=== PATIENT | female | born 1940 | race Two or more races ===

== ENCOUNTER 2017-07-01 16:15 | Emergency (ER) | payer MEDICAID, MEDICARE, OTHER ==
[~2017-07-01] VITALS: Ht 162.6 cm; Wt 61.7 kg
[~2017-07-01 16:15] MED LIST: ASPI-605 PO; CITA10TA17 PO; DOCU100T2 PO; FAMO40TA6 PO; HYDR12.55 PO; LOSA50TA21 PO; OMEP40CA PO; ROSU20TA PO; SAXA5TAB PO
--- NOTE | 2017-07-01 16:20 | NUR ---
[id number] FROM HOME: DIFFUSE ABDOMINAL PAIN, 10/10 NON RADIATING X 30 MIN DINING ROOM MAID. PATIENT IS AWAKE, APPEARS IN NO APPARENT DISTRESS, RESPIRATION EVEN AND UNLABORED. NO CHEST PAIN, NO SOB NOTED, VSS
--- NOTE | 2017-07-01 16:29 | NUR ---
MD MÉNDEZ AT BEDSIDE
[2017-07-01] MEDS ORDERED: LORAZEPAM INJ 2 MG/ML VIAL ONE ×2 (16:37→17:05)
[2017-07-01] MEDS ORDERED: MIDAZOLAM HCL 2 MG/2ML VIAL ONE (16:58)
[2017-07-01] MEDS ORDERED: LORAZEPAM INJ 2 MG/ML VIAL IV ONE ×2 (17:00→18:00)
[2017-07-01] MEDS ORDERED: MIDAZOLAM HCL 2 MG/2ML VIAL IV ONE (17:00)
--- NOTE | 2017-07-01 17:01 | NUR ---
SENIOR IT PROJECT MANAGER DIRECTOR ELECTRICAL ENGINEERING PAGED DR CHRISTIANSON DIRECTOR ELECTRICAL ENGINEERING
--- NOTE | 2017-07-01 17:01 | NUR ---
URINE SAMPLE SNT
--- NOTE | 2017-07-01 17:01 | NUR ---
MD MÉNDEZ CANCELLED CT
[2017-07-01 17:02] LABS: PROTHROMBIN TIME 10.4 SECS (9.5-12.7)
[2017-07-01 17:07] LABS: BASOPHILS % (AUTO) 0.2 % (0.0-2.0); EOSINOPHILS % (AUTO) 0.7 % (0.0-6.0); HEMATOCRIT 38 % (33-45); HEMOGLOBIN 12.9 g/dL (11.5-14.8); LYMPHOCYTES # (AUTO) 1.4 /CMM (0.8-4.8); LYMPHOCYTES % (AUTO) 20.8 % (20.0-44.0); MEAN CORPUSCULAR HEMOGLOBIN 31 PG (26.0-33.0); MEAN CORPUSCULAR HGB CONC 34 g/dl (31.0-36.0); MEAN CORPUSCULAR VOLUME 90 fL (82-100); MONOCYTES # (AUTO) 0.5 /CMM (0.1-1.30); MONOCYTES % (AUTO) 6.7 % (2.0-12.0); NEUTROPHILS % (AUTO) 71.6 % (43.0-81.0); PLATELET COUNT (AUTO) 203 /CMM (150-450); RDW COEFFICIENT OF VARIATION 13.6 (11.5-15.0); RED BLOOD CELL COUNT(AUTO) 4.23 MIL/uL (4.0-5.2)
[2017-07-01 17:08] LABS: CALCIUM, SERUM 8.6 mg/dL (8.5-10.1); CARBON DIOXIDE 27 mmol/L (21-32); CHLORIDE 98 mmol/L (98-107); CREATININE 0.9 mg/dL (0.6-1.3); GLUCOSE 148 mg/dL (74-106); POTASSIUM 3.4 mmol/L (3.5-5.1); SODIUM SERUM 136 mmol/L (136-145); UREA NITROGEN, BLOOD 15 mg/dL (7-18)
--- NOTE | 2017-07-01 17:10 | NUR ---
code stemi was called per Ekg-- MDpham
[2017-07-01] MEDS ORDERED: ASPIRIN 81 MG TAB.CHEW ONE (17:15)
[2017-07-01] MEDS ORDERED: NITROGLYCERIN PACKET 1 GM PACKET ONE (17:19)
[2017-07-01] MEDS ORDERED: ONDANSETRON HCL/PF 4 MG/2 ML VIAL ONE (17:19)
[2017-07-01 17:27] LABS: TROPONIN I 0.037 ng/mL (0.00-0.056)
--- NOTE | 2017-07-01 17:28 | NUR ---
DR MÉNDEZ ON THE PHONE WITH BELLE PLAINE QUALITY PROJECT MANAGER JASON
[2017-07-01] MEDS ORDERED: NTG 50 MG/D5W250 ML BOTTL 250 ML IV ONE (17:30)
[2017-07-01] MEDS ORDERED: ONDANSETRON HCL/PF 4 MG/2 ML VIAL IV ONE (17:30)
[2017-07-01] MEDS ORDERED: MORPHINE SULFATE INJ 2 MG/ML DISP.SYRIN IV ONE (17:30)
[2017-07-01 17:32] LABS: APPEARANCE,URINE CLEAR (CLEAR); BILIRUBIN,URINE NEGATIVE (NEGATIVE); BLOOD, URINE TRACE-INTA Ery/uL (NEGATIVE); COLOR,URINE YELLOW (YELLOW); KETONES,URINE TRACE (NEGATIVE); LEUKOCYTE ESTERASE ,URINE NEGATIVE (NEGATIVE); NITRITE, URINE NEGATIVE (NEGATIVE); PH,URINE 7.5 (5.0-8.0); PROTEIN,URINE NEGATIVE (NEGATIVE); UGLUCOSE NEGATIVE (NEGATIVE); UROBILINOGEN,URINE 0.2 EU/dL (0.2)
[2017-07-01 17:46] LABS: BACTERIA,URINE Rare /HPF (None Seen); SQUAMOUS EPITHELIAL CELL,UR Few /HPF (None Seen); WBC,URINE NONE SEEN /HPF (0-3)
--- NOTE | 2017-07-01 17:55 | NUR ---
wasted aspirin 81mg x 4.pt unable to swallow. MD emery changed order to suppository
[2017-07-01 17:57] VITALS: BP 135/94
[2017-07-01 17:57] LABS: ALANINE AMINOTRANSFERASE 22 U/L (12-78); ALKALINE PHOSPHATASE 67 U/L (46-116); ASPARTATE AMINOTRANSFERASE 23 U/L (15-37); BILIRUBIN,DIRECT 0.1 mg/dL (0.0-0.2); BILIRUBIN,TOTAL 0.5 mg/dL (0.2-1.0)
--- NOTE | 2017-07-01 17:57 | NUR ---
PATIENT WAS PICKED UP BY [facility] FOR [facility] LEVEL OF CARE. VSS. NEEDS ATTEDED
[2017-07-01 17:59] LABS: SALICYLATE 0.7 mg/dL (2.8-20.0)
[2017-07-01] MEDS ORDERED: HEPARIN SODIUM,PORCINE/PF 50 UNIT/5 ML DISP.SYRIN IV ONE (18:00)
[2017-07-01] MEDS ORDERED: ASPIRIN 300 MG/SUPP.RECT RC ONE (18:00)
--- NOTE | 2017-07-01 18:01 | NUR ---
WASTED NITRO OINTMENT
--- NOTE | 2017-07-01 18:01 | NUR ---
PATIENT'S NITRO DRIP INFUSING AT TIME OF TRANSFER TO [facility]. MD MÉNDEZ AWARE
[2017-07-01 18:07] LABS: SERUM AMMONIA 14 umol/L (11-32)
[2017-07-01 19:08] LABS: ACETAMINOPHEN < 2 ug/ml (10-30); ALCOHOL, BLOOD < 3 mg/dL (0-0)
[2017-07-02 10:51] LABS: THYROID STIMULATING HORMONE 6.391 uIU/mL (0.358-3.74)
== END 2017-07-01 18:43 | disposition short-term general hospital (02) ==
LOC: ER 16:17
DX: I21.3 ST elevation (STEMI) myocardial infarction of unspecified site (principal); E11.9 Type 2 diabetes mellitus without complications; E78.00 Pure hypercholesterolemia, unspecified; I10 Essential (primary) hypertension; E87.6 Hypokalemia; I70.0 Atherosclerosis of aorta; K21.9 Gastro-esophageal reflux disease without esophagitis; Z88.8 Allergy status to other drugs, medicaments and biological substances; Z88.1 Allergy status to other antibiotic agents
CPT/HCPCS: 36415; 51701; 71010; 80048; 80076; 80305; 80329; 81001; 82140; 82962; 84443; 84484; 85025; 85730; 93005 ×3; 96365; 96375; 99291; 99292; A4606; G0480 ×2; J1642; J2060 ×2; J2250; J2405; 81000-TC; Z7610

== ENCOUNTER 2019-10-31 12:02 | Inpatient (IN) | payer MEDICARE, MEDICAID ==
[~2019-10-31] VITALS: Ht 160 cm; Wt 59.9 kg
[~2019-10-31 12:02] MED LIST changes: -LOSA50TA21 PO; +LOSA50TA39 PO; -ROSU20TA PO; +ROSU20TA2 PO
--- NOTE | 2019-10-31 12:12 | NUR ---
BIBRA 102 FROM HOME C/O CHEST PAIN RADIATES TO BACK STARTED YESTERDAY. PATIENT A/OX4, BREATHING EVEN AND UNLABORED, NO SOB NOTED, STILL C/O CHEST PAIN, NEEDS ATTENDED. CHANGED INTO GOWN, ATTACHED TO THE SECTION GANG.
[2019-10-31] MEDS ORDERED: ATOR40TA PO (12:30)
[2019-10-31] MEDS ORDERED: NITR0.4T48 SL (12:30)
[2019-10-31] MEDS ORDERED: PANT40TA2 PO (12:30)
[2019-10-31] MEDS ORDERED: CLOP75TA15 PO (12:30)
[2019-10-31] MEDS ORDERED: SITA100T PO (12:30)
[2019-10-31] MEDS ORDERED: LISI40TA4 PO (12:30)
[2019-10-31] MEDS ORDERED: DICY20TA11 PO (12:31)
[2019-10-31] MEDS ORDERED: LINA290C PO (12:32)
[2019-10-31 12:47] LABS: BASOPHILS % (AUTO) 0.6 % (0.0-2.0); EOSINOPHILS % (AUTO) 0.8 % (0.0-6.0); HEMATOCRIT 38 % (33-45); HEMOGLOBIN 12.6 g/dL (11.5-14.8); LYMPHOCYTES # (AUTO) 1.2 /CMM (0.8-4.8); LYMPHOCYTES % (AUTO) 22.2 % (20.0-44.0); MEAN CORPUSCULAR HGB CONC 33 g/dl (31.0-36.0); MEAN CORPUSCULAR VOLUME 92 fL (82-100); MONOCYTES # (AUTO) 0.5 /CMM (0.1-1.30); MONOCYTES % (AUTO) 8.6 % (2.0-12.0); NEUTROPHILS # (AUTO) 3.6 /CMM (1.8-8.9); NEUTROPHILS % (AUTO) 67.8 % (43.0-81.0); PLATELET COUNT (AUTO) 184 /CMM (150-450); RED BLOOD CELL COUNT(AUTO) 4.12 MIL/uL (4.0-5.2); WHITE BLOOD COUNT (AUTO) 5.4 K/uL (4.3-11.0)
[2019-10-31] MEDS ORDERED: NITROGLYCERIN 0.4 MG/TAB BOTTLE ONE (12:48)
[2019-10-31 12:54] LABS: CALCIUM, SERUM 9.7 mg/dL (8.5-10.1); CARBON DIOXIDE 33 mmol/L (21-32); CHLORIDE 102 mmol/L (98-107); CREATININE 0.8 mg/dL (0.6-1.3); GLUCOSE 130 mg/dL (74-106); POTASSIUM 3.9 mmol/L (3.5-5.1); SODIUM SERUM 141 mmol/L (136-145); UREA NITROGEN, BLOOD 14 mg/dL (7-18)
[2019-10-31] MEDS ORDERED: NITROGLYCERIN 0.4 MG/TAB BOTTLE SL ONE (13:00)
--- NOTE | 2019-10-31 13:00 | NUR ---
CALLED NURSING FOR TELE BED.
--- NOTE | 2019-10-31 13:06 | NUR ---
PT GAVE DAUGHTERS CONTACT. [facility] HOME. CELL .
--- NOTE | 2019-10-31 13:06 | NUR ---
[facility].
[2019-10-31 13:07] LABS: ALANINE AMINOTRANSFERASE 43 U/L (12-78); ALKALINE PHOSPHATASE 74 U/L (46-116); ASPARTATE AMINOTRANSFERASE 53 U/L (15-37); B-TYPE NATRIURETIC PEPTIDE 1001 PG/ML (0-125); BILIRUBIN,DIRECT 0.1 mg/dL (0.0-0.2); BILIRUBIN,TOTAL 0.3 mg/dL (0.2-1.0); D-DIMER 0.34 mg/L(FEU (0.17-0.50); TOTAL PROTEIN, SERUM 7.4 g/dL (6.4-8.2)
--- NOTE | 2019-10-31 13:21 | NUR ---
PAGED EPIC SECOND ATTEMPT.
[2019-10-31] MEDS ORDERED: ASPIRIN 81 MG TAB.CHEW ONE (13:38)
--- NOTE | 2019-10-31 13:40 | NUR ---
CORNELIA ROJAS HUMAN RESOURCES COMMUNICATIONS MANAGER AT BEDSIDE FOR EVAL.
[2019-10-31] MEDS ORDERED: ZOLPIDEM TARTRATE 5 MG TABLET PO PRN (14:00)
[2019-10-31] MEDS ORDERED: NITROGLYCERIN 0.4 MG/TAB BOTTLE SL PRN (14:00)
[2019-10-31] MEDS ORDERED: HYDROCODONE/APAP 5/325MG 1 EACH TABLET PO PRN (14:00)
[2019-10-31] MEDS ORDERED: MAG HYDROX/AL HYDROX/SIMETH 30 ML UDC PO PRN (14:00)
[2019-10-31] MEDS ORDERED: ONDANSETRON HCL/PF 4 MG/2 ML VIAL IVP PRN (14:00)
[2019-10-31] MEDS ORDERED: ACETAMINOPHEN 325 MG TABLET PO PRN (14:00)
[2019-10-31] MEDS ORDERED: ASPIRIN 81 MG TAB.CHEW PO ONE (14:00)
--- NOTE | 2019-10-31 14:15 | NUR ---
NURSING SUP GAVE TELE BED 327-2. NURSING NAME IS ALEX.
--- NOTE | 2019-10-31 15:00 | NUR ---
GAVE REPORT TO [facility].
--- NOTE | 2019-10-31 15:48 | NUR ---
PATIENT TRANSFERRED TO ROOM 327-1 VIA ACLS PROTOCOL. PATIENT IN STABLE CONDITION, AMBULATORY. NEEDS ATTENDED, ENDORSED TO [facility]INE.
--- NOTE | 2019-10-31 15:58 | NUR ---
TELE/RN NOTE THE PATIENT IS RECEIVED ON A GURNEY. ASSISTED THE PATIENT TO BED. PATIENT IS ALERT AND ORIENTED X3. IN ROOM AIR AND DENIES SOB. RESPIRATION REGULAR AND UNLABORED. DENIES PAIN AT THIS TIME. THE PATIENT IN NO APPARENT DISTRESS. RAC G 18 PATENT AND SALINE LOCKED. PATIENT IS GIVEN ORIENTATION TO ROOM AND UNIT. THE PATIENT VERBALIZED UNDERSTANDING. CALL LIGHT WITHIN REACH. SIDE RAILS UP X3. WILL CONTINUE TO MONITOR.
[2019-10-31 16:00] VITALS: BP 144/72
[2019-10-31] MEDS ORDERED: DICYCLOMINE HCL 10 MG/5 ML UDC PO ONE (17:00)
[2019-10-31] MEDS: PANTOPRAZOLE 40 MG TABLET.DR PO SCH (17:14)
--- NOTE | 2019-10-31 18:01 | NUR ---
MS/RN NOTE FOLLOW UP CALL IS MADE TO PHARMACY TO DELIVER DICYCLOMINE HCL 20 MG. PER PHARMACY THE MEDICATION WILL BE DELIVERED. WILL CONTINUE TO FOLLOW UP.
--- NOTE | 2019-10-31 18:02 | NUR ---
MS/RN NOTE THE PATIENT IS ALERT AND ORIENTED X3. DENIES PAIN AT THIS TIME. IN ROOM AIR AND SATURATION IS AT 97%. RESPIRATION REGULAR AND UNLABORED. THE PATIENT IS IN NO APPARENT DISTRESS. EXTERNAL TELE BOX READING IS SR 74. RAC G 18 PATENT AND SALINE LOCKED. PATIENT IS ON CLEAR DIET AND TOLERATED IT WELL. BED LOW AND LOCKED. SIDE RAILS UP X3. CALL LIGHT WITHIN REACH. WILL ENDORSE TO MANAGER AUTOMOTIVE.
--- NOTE | 2019-10-31 18:52 | NUR ---
MS/RN NOTE THE CONTACT BLACKTOP SPREADER BOB FOR BLOOD THINNER ORDER DUE TO PATIENT HAS HX OF DVT AND VTE SCORE IS 3. NO REPLY YET. ENDORSED CLINICAL RN LIAISON TO FOLLOW UP.
--- NOTE | 2019-10-31 19:00 | NUR ---
SEARCH ENGINE OPTIMIZER OPENING NOTES RECEIVED PATIENT IN BED AWAKE ALERT AND ORIENTED X3-4, RESPIRATIONS EVEN AND UNLABORED WITH EQUAL RISE AND FALL OF CHEST, DENIES ANY PAIN OR DISCOMFORT AT THIS TIME, ON SUEDING MACHINE OPERATOR SR 64, IV SITE TO RIGHT AC #18 G INTACT AND PATENT, NO REDNESS, NO INFILTRATION PRESENT,ORIENTED TO STAFF AND CALL LIGHT AND KEPT WITHIN REACH, SAFETY PRECAUTIONS IN PLACE, LOW BED AND LOCKED, BED ALARM IN PLACE, ALL NEEDS ATTENDED AT THIS TIME, WILL CONTINUE TO MONITOR AND ATTEND TO NEEDS, AT THIS TIME DENIES ANY CHEST PAIN.DISCUSSED PLAN OF CARE WITH PATIENT.
--- NOTE | 2019-10-31 19:00 | NUR ---
MS/RN NOTE RECEIVED CALL FROM OMAR ROJAS AND HAMLET N[P NO NEW FOR ANOTHER MEDICATION ORDER (BLOOD THINNER) DUE TO PATIENT IS ALREADY ON PLAVIX.
[2019-10-31 20:00] VITALS: BP_SYST 117; BP_SYST 148; BP_DIAS 58; BP_DIAS 62
[2019-10-31] MEDS: DICYCLOMINE HCL 10 MG CAPSULE PO SCH (20:54)
[2019-10-31] MEDS: MAGNESIUM HYDROXIDE 30 ML UDC PO PRN (20:54)
--- NOTE | 2019-10-31 20:54 | NUR ---
RESPIRATORY THERAPY TECHNICIAN NOTES PATIENT REQUEST FOR MILK OF MAGNESIUM STATES " SHE FEELS SHES ONLY HAD A VERY SMALL BOWEL MOVEMENT RECENTLY " PRN MILK OF MAGNESIUM GIVEN ORDERED WILL CONTINUE TO MONITOR.
[2019-10-31] MEDS ORDERED: ATORVASTATIN 10 MG TABLET PO SCH (22:00)
[2019-11-01] VITALS: BP 107/68
[2019-11-01 04:00] VITALS: BP 147/76
--- NOTE | 2019-11-01 06:23 | NUR ---
TRANSMISSIONS SYSTEMS OPERATOR CLOSING NOTES PATIENT IN BED AWAKE ALERT AND ORIENTED X3-4, RESPIRATIONS EVEN AND UNLABORED WITH EQUAL RISE AND FALL OF CHEST, DENIES ANY PAIN OR DISCOMFORT AT THIS TIME, ON LACTATION NURSE SR 66, IV SITE TO RIGHT AC #18 G INTACT AND PATENT, NO REDNESS, NO INFILTRATION PRESENT CALL LIGHT KEPT WITHIN REACH, SAFETY PRECAUTIONS IN PLACE, LOW BED AND LOCKED, BED ALARM IN PLACE, ALL NEEDS ATTENDED AT THIS TIME, WILL CONTINUE TO MONITOR AND ATTEND TO NEEDS, AT THIS TIME DENIES ANY CHEST PAIN.DISCUSSED PLAN OF CARE WITH PATIENT. WILL ENDORSE TO NEXT SHIFT. REMAINS COMFORTABLE.
[2019-11-01 06:29] LABS: BASOPHILS % (AUTO) 0.5 % (0.0-2.0); EOSINOPHILS % (AUTO) 2.2 % (0.0-6.0); HEMATOCRIT 35 % (33-45); LYMPHOCYTES # (AUTO) 1.8 /CMM (0.8-4.8); LYMPHOCYTES % (AUTO) 33.3 % (20.0-44.0); MEAN CORPUSCULAR HGB CONC 34 g/dl (31.0-36.0); MEAN CORPUSCULAR VOLUME 91 fL (82-100); MONOCYTES # (AUTO) 0.6 /CMM (0.1-1.30); MONOCYTES % (AUTO) 10.3 % (2.0-12.0); NEUTROPHILS # (AUTO) 2.9 /CMM (1.8-8.9); NEUTROPHILS % (AUTO) 53.7 % (43.0-81.0); PLATELET COUNT (AUTO) 168 /CMM (150-450); RED BLOOD CELL COUNT(AUTO) 3.88 MIL/uL (4.0-5.2); WHITE BLOOD COUNT (AUTO) 5.4 K/uL (4.3-11.0)
--- NOTE | 2019-11-01 06:30 | NUR ---
CORING MACHINE OPERATOR NOTES STATES SKIN IS CLEAR AND FREE OF WOUNDS.
[2019-11-01 06:47] LABS: CALCIUM, SERUM 8.3 mg/dL (8.5-10.1); CREATININE 0.8 mg/dL (0.6-1.3); MAGNESIUM 2.4 mg/dL (1.8-2.4); POTASSIUM 3.8 mmol/L (3.5-5.1)
--- NOTE | 2019-11-01 07:15 | NUR ---
RIP/MOULD OPERATOR NOTES PATIENT IN BED ALERT ORIENTED X 3. NO ACUTE DISTRESS NOTED. BREATHING UNLABORED. NO SOB NOTED. DENIED ANY PAIN. SAFETY MEASURES IN PLACE. CALL LIGHT WITHIN REACH. WILL CONTINUE TO MONITOR ACCORDINGLY.
[2019-11-01 08:00] VITALS: BP 136/65
[2019-11-01] MEDS: PANTOPRAZOLE 40 MG TABLET.DR PO SCH ×2 (08:21→17:14)
[2019-11-01] MEDS: ASPIRIN 81 MG TAB.CHEW PO SCH (08:21)
[2019-11-01] MEDS: ATORVASTATIN 40 MG TABLET PO SCH (08:21)
[2019-11-01] MEDS: LINAGLIPTIN 5 MG TABLET PO SCH (08:21)
[2019-11-01] MEDS: LISINOPRIL (20MG) 20 MG TABLET PO SCH (08:22)
[2019-11-01] MEDS: DICYCLOMINE HCL 10 MG CAPSULE PO SCH (08:23)
[2019-11-01] MEDS: CLOPIDOGREL BISULFATE 75 MG TABLET PO SCH (08:23)
[2019-11-01] MEDS ORDERED: DICYCLOMINE HCL 10 MG CAPSULE PO PRN (10:00)
[2019-11-01] MEDS ORDERED: IOHEXOL-350 100 ML VIAL IV ONE (11:45)
[2019-11-01] MEDS ORDERED: IV NS 0.9% 250 ML IV ONE (11:46)
[2019-11-01] MEDS ORDERED: CT SWABBABLE VALVE TRANS SET 1 EA INFUS.SET MC ONE (11:46)
[2019-11-01] MEDS: METOPROLOL TARTRATE 50 MG TABLET PO SCH ×3 (12:00→23:36)
[2019-11-01] MEDS ORDERED: METOPROLOL TARTRATE INJ 5 MG/5 ML AMPUL IVP ONE (12:00)
[2019-11-01] MEDS ORDERED: IV NS 0.9% 500 ML IV PRN (12:00)
[2019-11-01] MEDS ORDERED: NITROGLYCERIN 0.4 MG/TAB BOTTLE SL ONE (12:00)
--- NOTE | 2019-11-01 12:00 | NUR ---
MS RN NOTES PATIENT TRANSPORTED FOR CTA IN STABLE CONDITION. ALERT ORIENTED X 3.
[2019-11-01] MEDS ORDERED: IBUPROFEN 200 MG TABLET ONE (12:12)
[2019-11-01] MEDS ORDERED: NITROGLYCERIN 0.4 MG/TAB BOTTLE ONE (12:12)
[2019-11-01] MEDS ORDERED: METOPROLOL TARTRATE INJ 5 MG/5 ML AMPUL ONE ×2 (12:12→12:51)
--- NOTE | 2019-11-01 13:45 | NUR ---
MS RN NOTES PATIENT CAME BACK FROM CTA WITH STABLE VITAL SIGNS. ALERT ORIENTED X 3. NO ACUTE DISTRESS NOTED. WILL CONTINUE TO MONITOR,
[2019-11-01 16:00] VITALS: BP 147/79
--- NOTE | 2019-11-01 17:59 | NUR ---
MS RN NOTES RECEIVED NEW ORDERS FROM CORNELIA ROJAS NP TO CHANGE CURRENT DIET CARDIAC, NOTED AND CARRIED OUT.
--- NOTE | 2019-11-01 19:00 | NUR ---
MS RN NOTES PATIENT IN BED ALERT ORIENTED X 4.NO ACUTE DISTRESS NOTED. BREATHING UNLABORED. NO SOB NOTED. DENIED ANY PAIN. DUE MEDICATIONS GIVEN, NO ASE NOTED. VITAL SIGNS REMAIN STABLE TROUGHTOUT THE SHIFT. NEEDS ATTENDED AND ANTICIPATED. SAFETY MEASURES IN PLACE. CALL LIGHT WITHIN REACH. WILL ENDORSE TO NIGHT NURSE FOR CONTINUITY OF CARE.
[2019-11-01 20:35] VITALS: BP 167/70
[2019-11-01] MEDS: MAGNESIUM HYDROXIDE 30 ML UDC PO PRN (21:34)
--- NOTE | 2019-11-01 21:42 | NUR ---
MS RN OPENING NOTES Patient A/O X4, awake on bed on RA, no SOB/respiratory distress noted. Patient denies discomfort at this time. Kept on bed clean, dry and comfortable. On fall and aspiration precautions. Call light within easy reach. Will continue to monitor.
--- NOTE | 2019-11-02 01:04 | NUR ---
MS SERGIO NOTES Endorsed to SERGIO Shoemaker for MODESTO.
--- NOTE | 2019-11-02 01:15 | NUR ---
MS/RN NOTES: REPORT GIVEN BY ARABELLA FOR MODE[facility]. RECEIVED PATIENT IN A STABLE CONDITION. A/O X4, VERBALLY RESPONSIVE. ABLE TO MAKE NEEDS KNOWN. NO SOB NOTED, ON ROOM AIR. BREATHING EVEN AND UNLABORED. NO S/S OF ACUTE DISTRESS. NO COMPLAINS OF PAIN AT THIS TIME. WILL CONTINUE TO MONITOR PATIENT ACCORDINGLY. SAFETY PRECAUTIONS AND ASPIRATION PRECAUTIONS ARE IN PLACE. CALL LIGHT WITHIN REACH. WILL CONTINUE TO MONITOR ACCORDINGLY.
[2019-11-02] MEDS: METOPROLOL TARTRATE 50 MG TABLET PO SCH ×2 (06:24→13:07)
[2019-11-02 06:46] LABS: BASOPHILS % (AUTO) 0.4 % (0.0-2.0); EOSINOPHILS % (AUTO) 2.4 % (0.0-6.0); HEMATOCRIT 37 % (33-45); HEMOGLOBIN 12.6 g/dL (11.5-14.8); LYMPHOCYTES # (AUTO) 1.5 /CMM (0.8-4.8); LYMPHOCYTES % (AUTO) 26.3 % (20.0-44.0); MEAN CORPUSCULAR HGB CONC 34 g/dl (31.0-36.0); MEAN CORPUSCULAR VOLUME 92 fL (82-100); MONOCYTES # (AUTO) 0.6 /CMM (0.1-1.30); MONOCYTES % (AUTO) 10.4 % (2.0-12.0); NEUTROPHILS # (AUTO) 3.4 /CMM (1.8-8.9); NEUTROPHILS % (AUTO) 60.5 % (43.0-81.0); PLATELET COUNT (AUTO) 168 /CMM (150-450); RED BLOOD CELL COUNT(AUTO) 4.04 MIL/uL (4.0-5.2); WHITE BLOOD COUNT (AUTO) 5.7 K/uL (4.3-11.0)
--- NOTE | 2019-11-02 07:00 | NUR ---
MS RN CLOSING NOTES: Patient is asleep in bed but arousable on tactile and verbal stimuli. A/O X4, no SOB/respiratory distress noted. Patient denies discomfort at this time. Kept on bed clean, dry and comfortable. All due meds given as ordered. All nursing needs met and provided. On fall and aspiration precautions. Safety measure kept in place. Call light within easy reach. Will endorse to day shift nurse for [facility].
--- NOTE | 2019-11-02 07:52 | NUR ---
MS HILL OPENING NOTES PATIENT RECEIVED IN BED AWAKE, A/O X 3, ABLE TO VERBALIZE NEEDS. DENIES ANY PAIN AT THIS TIME. PATIENT ON RA, RESPIRATIONS EVEN AND UNLABORED. IV LOCK ON LEFT AC GAUGE # 22, INTACT AND PATENT, NO REDNESS OR INFILTRATION PRESENT AT THIS TIME. SAFETY PRECAUTIONS IN PLACE: BED IN LOW POSITION AND LOCKED, BED ALARM IN PLACE, CALL LIGHT WITHIN REACH, ALL NEEDS ATTENDED AT THIS TIME. WILL CONTINUE TO MONITOR THE PATIENT. Addendum: 11/02/19 at 0803 by VAISHNAVI JIANG RN CORRECTION: IV LOCK ON LEFT AC GAUGE # 18 NOT 22
[2019-11-02 08:00] VITALS: BP 150/79
[2019-11-02] MEDS: CLOPIDOGREL BISULFATE 75 MG TABLET PO SCH (08:57)
[2019-11-02] MEDS: LINAGLIPTIN 5 MG TABLET PO SCH (08:58)
[2019-11-02] MEDS: LISINOPRIL (20MG) 20 MG TABLET PO SCH (08:58)
[2019-11-02] MEDS: ATORVASTATIN 40 MG TABLET PO SCH (08:59)
[2019-11-02] MEDS: PANTOPRAZOLE 40 MG TABLET.DR PO SCH (08:59)
[2019-11-02] MEDS: ASPIRIN 81 MG TAB.CHEW PO SCH (08:59)
[2019-11-02 09:06] LABS: CALCIUM, SERUM 8.4 mg/dL (8.5-10.1); CREATININE 0.9 mg/dL (0.6-1.3); MAGNESIUM 2.8 mg/dL (1.8-2.4); PHOSPHORUS 2.9 mg/dL (2.5-4.9); POTASSIUM 3.9 mmol/L (3.5-5.1)
[2019-11-02] MEDS ORDERED: AMLODIPINE BESYLATE 10 MG TABLET PO SCH (09:30)
[2019-11-02] MEDS ORDERED: AMLO10TA7 PO (13:05)
[2019-11-02] MEDS ORDERED: DOCU-141 PO (13:05)
[2019-11-02] MEDS ORDERED: METO25TA6 PO (13:05)
[2019-11-02 13:07] VITALS: BP 141/61
--- NOTE | 2019-11-02 16:29 | NUR ---
RN DISCHARGED NOTES PT DISCHARGED HOME IN STABLE CONDITION. A/O X4. ABLE TO MAKE NEEDS KNOW, NO C/O CHEST PAIN VOICED NOTED. V/S TAKEN, STABLE AND RECORDED. SKIN IS INTACT. ALL BELONGINGS CHECKED, COUNTED AND SIGNED FORM. IV ACCESS REMOVED WITH NO BLEEDING NOTED, DRY [id number] APPLIED. NAME ARM BAND REMOVED. HEALTH TEACHINGS GIVEN TO PT AND FRIEND ARLEEN, BOTH VERBALIZED UNDERSTANDING. HOME MEDS STORED FROM PHARMACY COLLECTED AND HANDED TO PT. PT LEFT UNIT VIA WHEELCHAIR @ 1610 VIA WHEELCHAIR ACCOMPANIED BY ENGINE REPAIRER AND PT'S FRIEND ARLEEN IN NO ACUTE SIGNS OF DISTRESS. CHARGE NURSE AWARE OF DISCHARGE.
== END 2019-11-02 16:14 | disposition home or self-care (01) | DRG 303 ==
LOC: ER 12:09 → TELE 14:22 → MED 11-01 09:31
PROVIDERS: ADMIT Nurse Practitioner Acute Care; ATTEND Nurse Practitioner Acute Care
DX: I25.10 Atherosclerotic heart disease of native coronary artery without angina pectoris (principal); K56.7 Ileus, unspecified; K59.00 Constipation, unspecified; I10 Essential (primary) hypertension; E11.9 Type 2 diabetes mellitus without complications; Z79.02 Long term (current) use of antithrombotics/antiplatelets; Z79.82 Long term (current) use of aspirin; Z79.899 Other long term (current) drug therapy; Z95.5 Presence of coronary angioplasty implant and graft; M81.0 Age-related osteoporosis without current pathological fracture; K21.9 Gastro-esophageal reflux disease without esophagitis; Z88.1 Allergy status to other antibiotic agents; Z88.8 Allergy status to other drugs, medicaments and biological substances; Z79.84 Long term (current) use of oral hypoglycemic drugs
CPT/HCPCS: 36415; 71045-TC; 74018; 75574; 80048-TC; 80061-TC; 80076-TC; 83735-TC; 83880; 84100-TC; 84484-TC; 85025-TC; 85378-TC; 85730-TC; 87081-TC; 93307-TC; 97116-TC; 97530-TC; G0378; J3490; J7050; Q9967

== ENCOUNTER 2020-10-27 19:02 | Inpatient (IN) | payer MEDICARE, OTHER ==
[~2020-10-27] VITALS: Ht 165.1 cm; Wt 55.3 kg
[~2020-10-27 19:02] MED LIST changes: +AMLO-213 PO; +ATOR40TA PO; -CITA10TA17 PO; +CLOP75TA15 PO; +DICY20TA11 PO; +DOCU-141 PO; -DOCU100T2 PO; -FAMO40TA6 PO; -HYDR12.55 PO; +LINA290C PO; +LISI40TA4 PO; -LOSA50TA39 PO; +METO25TA6 PO; +NITR0.4T48 SL; -OMEP40CA PO; +PANT40TA2 PO; -ROSU20TA2 PO; -SAXA5TAB PO; +SITA100T PO
[2020-10-27] MEDS ORDERED: MORPHINE SULFATE INJ 2 MG/ML DISP.SYRIN IV ONE ×2 (19:30→22:30)
[2020-10-27] MEDS ORDERED: ONDANSETRON HCL/PF 4 MG/2 ML VIAL IVP ONE (19:30)
[2020-10-27] MEDS ORDERED: IV NS 0.9% 500 ML BAG IV ONE (19:30)
[2020-10-27] MEDS ORDERED: ONDANSETRON HCL/PF 4 MG/2 ML VIAL ONE (19:33)
[2020-10-27] MEDS ORDERED: MORPHINE SULFATE INJ 4 MG/ML DISP.SYRIN ONE ×2 (19:33→22:35)
--- NOTE | 2020-10-27 19:40 | NUR ---
PATIENT CAME TO ER BED 1 BIBRA C/O LOWER ABDOMINAL PAIN. PATIENT ALSO HAS C/O THAT SHE HAS UPPER ABDOMINAL PAIN WELL. PER RA REPORT PATIENT WAS ADMITTED TO [facility] LAST WEEK FOR 4 DAYS OF HOSPITAL STAY W/ UNKNOWN DIAGNOSIS. PATIENT IS AAOX4. SLOVENIAN SPEAKING ONLY. NO SOB. BREATHING EVENLY AND UNLABORED ON ROOM AIR. CONNECTED TO THE MONITOR
--- NOTE | 2020-10-27 19:41 | NUR ---
xray at bedside.
[2020-10-27 19:44] LABS: BASOPHILS % (AUTO) 0.4 % (0.0-2.0); EOSINOPHILS % (AUTO) 0.4 % (0.0-6.0); HEMATOCRIT 36 % (33-45); HEMOGLOBIN 12.1 g/dL (11.5-14.8); LYMPHOCYTES # (AUTO) 1.3 /CMM (0.8-4.8); LYMPHOCYTES % (AUTO) 21.7 % (20.0-44.0); MEAN CORPUSCULAR HGB CONC 34 g/dl (31.0-36.0); MEAN CORPUSCULAR VOLUME 89 fL (82-100); MONOCYTES # (AUTO) 0.6 /CMM (0.1-1.30); NEUTROPHILS % (AUTO) 67.5 % (43.0-81.0); PLATELET COUNT (AUTO) 269 /CMM (150-450); RED BLOOD CELL COUNT(AUTO) 3.98 MIL/uL (4.0-5.2)
[2020-10-27 20:01] LABS: BILIRUBIN,URINE Negative (NEGATIVE); BLOOD, URINE Negative Ery/uL (NEGATIVE); COLOR,URINE YELLOW (YELLOW); LEUKOCYTE ESTERASE ,URINE Negative (NEGATIVE); NITRITE, URINE Negative (NEGATIVE); PROTEIN,URINE Negative (NEGATIVE); UGLUCOSE Negative (NEGATIVE); UROBILINOGEN,URINE 0.2 EU/dL (0.2)
[2020-10-27 20:18] LABS: ALANINE AMINOTRANSFERASE 32 U/L (12-78); ALBUMIN 3.3 g/dL (3.4-5.0); ALKALINE PHOSPHATASE 113 U/L (46-116); ASPARTATE AMINOTRANSFERASE 27 U/L (15-37); BILIRUBIN,DIRECT 0.1 mg/dL (0.0-0.2); BILIRUBIN,TOTAL 0.3 mg/dL (0.2-1.0); CALCIUM, SERUM 9.1 mg/dL (8.5-10.1); CARBON DIOXIDE 29 mmol/L (21-32); CHLORIDE 96 mmol/L (98-107); CREATININE 0.7 mg/dL (0.6-1.3); GLUCOSE 147 mg/dL (74-106); LIPASE 45 U/L (73-393); POTASSIUM 4.3 mmol/L (3.5-5.1); SODIUM SERUM 130 mmol/L (136-145); TOTAL PROTEIN, SERUM 6.8 g/dL (6.4-8.2); UREA NITROGEN, BLOOD 15 mg/dL (7-18)
[2020-10-27] MEDS ORDERED: IOHEXOL-300 100 ML VIAL IV ONE (20:37)
[2020-10-27] MEDS ORDERED: CT SWABBABLE VALVE TRANS SET 1 EA INFUS.SET MC ONE (20:37)
[2020-10-27] MEDS ORDERED: IV NS 0.9% 250 ML IV ONE (20:37)
--- NOTE | 2020-10-27 22:33 | NUR ---
COVID SWAB COLLECTED AND SENT TO THE LAB.
[2020-10-27] MEDS ORDERED: ZOLPIDEM TARTRATE 5 MG TABLET PO PRN (23:00)
[2020-10-27] MEDS ORDERED: ACETAMINOPHEN 325 MG TABLET PO PRN (23:00)
[2020-10-27] MEDS ORDERED: IV D5/0.45 NACL 1,000 ML IV PRN (23:00)
[2020-10-27] MEDS ORDERED: Z GUARD REMEDY 2 OZ OINT TP PRN (23:00)
[2020-10-27] MEDS ORDERED: MAG HYDROX/AL HYDROX/SIMETH 30 ML UDC PO PRN (23:00)
[2020-10-27] MEDS ORDERED: ONDANSETRON HCL/PF 4 MG/2 ML VIAL IVP PRN (23:00)
[2020-10-27] MEDS ORDERED: MAGNESIUM HYDROXIDE 30 ML UDC PO PRN (23:00)
--- NOTE | 2020-10-27 23:44 | NUR ---
Jody grullon in ED - 10/28/20 at 0024 by JORDON patient taken up to assigned room for megan.
--- NOTE | 2020-10-27 23:48 | NUR ---
REPORT GIVEN TO CHARO HILL FOR [facility].
--- NOTE | 2020-10-27 23:54 | NUR ---
sethen taken up to assigned room for megan.
[2020-10-27 23:55] VITALS: BP 107/61
--- NOTE | 2020-10-27 23:55 | NUR ---
RN ADMITTING NOTE RECEIVED PATIENT FROM ER VIA GURNEY ACCOMPANIED BY 1 ER STAFF AND TRANSFERRED TO BED VIA 2 PERSON ASSIST. PATIENT IS ALERT AND ORIENTED X4, PRIMARY LANGUAGE IS YAKUT BUT UNDERSTANDS AND SPEAKS BASIC LAO. PATIENT ON ROOM AIR WITH RESPIRATIONS EVEN AND UNLABORED, SATURATING AT 98%. COMPREHENSIVE PHYSICAL ASSESSMENT DONE. CALL LIGHT WITHIN REACH, SAFETY MEASURES IN PLACE, WILL CONTINUE MONITOR AND ASSESS THROUGHOUT THE SHIFT. WILL CARRY OUT MD ORDERS ACCORDINGLY.
[2020-10-28 00:30] VITALS: BP 107/61
[2020-10-28] MEDS ORDERED: DEXTROSE 50%-WATER 50 ML DISP.SYRIN IV PRN (02:00)
[2020-10-28] MEDS: BLOOD SUGAR DIAGNOSTIC 1 EACH STRIP IN SCH ×3 (06:54→18:51)
[2020-10-28] MEDS: INSULIN REGULAR, HUMAN 100 UNIT/ML 3 ML VIAL SQ PRN ×2 (06:56→17:50)
[2020-10-28 07:04] LABS: BASOPHILS % (AUTO) 0.4 % (0.0-2.0); EOSINOPHILS % (AUTO) 0.8 % (0.0-6.0); HEMATOCRIT 34 % (33-45); HEMOGLOBIN 11.7 g/dL (11.5-14.8); LYMPHOCYTES # (AUTO) 1.3 /CMM (0.8-4.8); LYMPHOCYTES % (AUTO) 20.9 % (20.0-44.0); MEAN CORPUSCULAR HGB CONC 34 g/dl (31.0-36.0); MEAN CORPUSCULAR VOLUME 89 fL (82-100); MONOCYTES # (AUTO) 0.5 /CMM (0.1-1.30); MONOCYTES % (AUTO) 8.5 % (2.0-12.0); NEUTROPHILS # (AUTO) 4.4 /CMM (1.8-8.9); NEUTROPHILS % (AUTO) 69.4 % (43.0-81.0); PLATELET COUNT (AUTO) 226 /CMM (150-450); RED BLOOD CELL COUNT(AUTO) 3.85 MIL/uL (4.0-5.2); WHITE BLOOD COUNT (AUTO) 6.3 K/uL (4.3-11.0)
[2020-10-28 07:20] LABS: CREATININE 0.6 mg/dL (0.6-1.3); MAGNESIUM 2.1 mg/dL (1.8-2.4); PHOSPHORUS 2.9 mg/dL (2.5-4.9); POTASSIUM 3.5 mmol/L (3.5-5.1)
--- NOTE | 2020-10-28 07:56 | NUR ---
MS RN OPENING NOTE: PT RECEIVED IN BED ALERT AND ORIENTED X 4. PT ON RA O2 SATURATION 100%, NO RESPIRATORY DISTRESS OR SOB. PT IS BEDREST WITH SKIN INTACT. PT NPO. PT HAS LAC 18G RUNNING D5 1/2 NS AT 75 ML/HR. NO SIGNS OF INFECTION OR INFILTRATION. BED LOCKED LOWEST POSITION. CALL LIGHT WITHIN REACH. ALL SAFETY MEASURES IN PLACE. WILL CONTINUE TO MONITOR CLOSELY.
[2020-10-28 08:00] VITALS: BP 148/72
[2020-10-28] MEDS ORDERED: METO25TA4 PO (08:15)
[2020-10-28] MEDS ORDERED: ISOS30TA6 PO (08:15)
[2020-10-28] MEDS ORDERED: SITA50TA PO (08:15)
[2020-10-28] MEDS: PANTOPRAZOLE 40 MG VIAL IV SCH (09:07)
[2020-10-28] MEDS: ENOXAPARIN SODIUM 40 MG/0.4 ML DISP.SYRIN SQ SCH (09:11)
[2020-10-28] MEDS: MORPHINE SULFATE INJ 2 MG/ML DISP.SYRIN IV PRN ×2 (09:34→20:03)
--- NOTE | 2020-10-28 12:57 | NUR ---
UNABLE TO REACH FAMILY REGARDING PT CANCER HISTORY AND TREATMENT, WILL TRY AGAIN LATER
[2020-10-28 16:00] VITALS: BP 147/76
[2020-10-28 16:02] VITALS: BP 147/76
[2020-10-28] MEDS: IV D5/ 0.9% NACL 1,000 ML IV PRN (16:52)
--- NOTE | 2020-10-28 19:15 | NUR ---
rn ms opening notes received patient in bed awake alert and oriented x, 4 respirations even and unlabored with equal rise and fall of chest, at this time denies any pain . iv site to left ac#18 g intact and patent, no redness, no infiltration present, ivf running as ordered, on clear liquids pt is aware, oriented to staff and call light and kept within reach, safety precautions rendered, low bed and locked, bed alarm in place. all needs attended at this time, will continue to monitor and attend to needs.
--- NOTE | 2020-10-28 19:41 | NUR ---
MS RN NOTE: PT IN BED AOX3, SWEDISH-SPEAKING. PT ON RA 100% O2 SAT, NO RESPIRATORY DISTRESS OR SOB. PT USES BEDREST, USES BEDPAN. 5X VOIDS THIS SHIFT, NO BM. PT PREVIOUSLY NPO, NOW CLEAR LIQUIDS. PT HAS LAC #18G RUNNING D5NS @ 50 ML/HR. NO SIGNS OF INFECTION OR INFILTRATION. BED IN LOCKED LOWEST POSITION, CALL LIGHT WITHIN REACH, ALL SAFETY MEASURES IN PLACE. REPORT GIVEN TO ONCOMING RN FOR [facility]
[2020-10-28 20:00] VITALS: BP 149/76
--- NOTE | 2020-10-28 20:06 | NUR ---
rn ms notes patient complained of pain to abdomen area / states she has alot of pain and it feels like her stomach back, also states she feels nausea. requested for pain medication, vs assessed, wnl. morphine prn as ordered and zofran prn as ordered given, will continue to monitor.
[2020-10-29] VITALS: BP 130/80
[2020-10-29] MEDS: BLOOD SUGAR DIAGNOSTIC 1 EACH STRIP IN SCH ×5 (00:38→23:34)
[2020-10-29] MEDS: INSULIN REGULAR, HUMAN 100 UNIT/ML 3 ML VIAL SQ PRN ×4 (00:38→23:34)
[2020-10-29] MEDS: MORPHINE SULFATE INJ 2 MG/ML DISP.SYRIN IV PRN ×3 (04:48→23:31)
--- NOTE | 2020-10-29 04:48 | NUR ---
rn ms notes patient complained of pain to abdomen area / states she has alot of pain requested for pain medication, vs assessed, wnl. morphine prn as ordered given, will continue to monitor.
--- NOTE | 2020-10-29 06:52 | NUR ---
rn ms closing notes patient in bed awake alert and oriented x, 4 respirations even and unlabored with equal rise and fall of chest, at this time denies any pain, pain medication effective . iv site to left ac#18 g intact and patent, no redness, no infiltration present, ivf running as ordered, on clear liquids pt is aware, call light and kept within reach, safety precautions rendered, low bed and locked, bed alarm in place. bed henderson and fluids offered, all needs attended at this time, will continue to monitor and attend to needs and endorse to next shift.
--- NOTE | 2020-10-29 07:30 | NUR ---
RN OPENING NOTE THE PATIENT IS RECEIVED IN BED. PATIENT IS ALERT AND ORIENTED X4. IN ROOM AIR AND DENIES SOB. RESPIRATION REGULAR AND UNLABORED. DENIES PAIN. THE PATIENT IS IN NO APPARENT DISTRESS. LAC G 18 PATENT AND D5 NS INFUSING AT 50 ML/HR AND NO S/S INFILTRATION NOTED. BED LOW AND LOCKED. SIDE RAILS UP X3. CALL LIGHT WITHIN REACH. WILL CONTINUE TO MONITOR.
[2020-10-29 08:54] LABS: BASOPHILS % (AUTO) 0.4 % (0.0-2.0); EOSINOPHILS % (AUTO) 1.6 % (0.0-6.0); HEMATOCRIT 38 % (33-45); HEMOGLOBIN 12.7 g/dL (11.5-14.8); LYMPHOCYTES # (AUTO) 1.4 /CMM (0.8-4.8); LYMPHOCYTES % (AUTO) 25.6 % (20.0-44.0); MEAN CORPUSCULAR HGB CONC 34 g/dl (31.0-36.0); MEAN CORPUSCULAR VOLUME 90 fL (82-100); MONOCYTES # (AUTO) 0.4 /CMM (0.1-1.30); MONOCYTES % (AUTO) 7.9 % (2.0-12.0); NEUTROPHILS # (AUTO) 3.5 /CMM (1.8-8.9); NEUTROPHILS % (AUTO) 64.5 % (43.0-81.0); PLATELET COUNT (AUTO) 250 /CMM (150-450); RED BLOOD CELL COUNT(AUTO) 4.19 MIL/uL (4.0-5.2); WHITE BLOOD COUNT (AUTO) 5.4 K/uL (4.3-11.0)
[2020-10-29 09:15] LABS: CALCIUM, SERUM 8.2 mg/dL (8.5-10.1); CARBON DIOXIDE 27 mmol/L (21-32); CHLORIDE 99 mmol/L (98-107); CREATININE 0.5 mg/dL (0.6-1.3); GLUCOSE 143 mg/dL (74-106); MAGNESIUM 2.2 mg/dL (1.8-2.4); PHOSPHORUS 2.8 mg/dL (2.5-4.9); POTASSIUM 3.5 mmol/L (3.5-5.1); SODIUM SERUM 133 mmol/L (136-145); UREA NITROGEN, BLOOD 6 mg/dL (7-18)
[2020-10-29] MEDS: ENOXAPARIN SODIUM 40 MG/0.4 ML DISP.SYRIN SQ SCH (09:36)
[2020-10-29] MEDS: PANTOPRAZOLE 40 MG VIAL IV SCH (09:36)
[2020-10-29 10:09] LABS: CHOLESTEROL 143 mg/dL (<200); HDL CHOLESTEROL 91 mg/dL (40-60); LDL 44 mg/dL (0-99); THYROID STIMULATING HORMONE 3.538 uIU/mL (0.358-3.74); TRIGLYCERIDES 65 mg/dL (30-150); URIC ACID 2.7 mg/dL (2.6-7.2)
[2020-10-29] MEDS ORDERED: PANTOPRAZOLE 40 MG TABLET.DR PO SCH (12:47)
--- NOTE | 2020-10-29 13:17 | NUR ---
RN CHANGE IN DIET ORDER RECEIVED AN ORDER FROM OMAR OREILLY TO CHANGE DIET ORDER FROM CLEAR DIET ORDER TO CARDIAC ORDER. NOTED AND CARRIED OUT.
[2020-10-29] MEDS ORDERED: NITROGLYCERIN 0.4 MG/TAB BOTTLE SL PRN (14:00)
[2020-10-29] MEDS ORDERED: NALOXONE HCL 0.4 MG/ML AMPUL IV PRN (17:00)
[2020-10-29] MEDS ORDERED: FENTANYL TD PATCH (12 MCG/HR) 12 MCG/HR PATCH.TD72 TD SCH (17:00)
[2020-10-29] MEDS: IV D5/ 0.9% NACL 1,000 ML IV PRN (17:37)
[2020-10-29] MEDS: PANTOPRAZOLE 40 MG TABLET.DR PO SCH (17:43)
--- NOTE | 2020-10-29 18:40 | NUR ---
RN CLOSING NOTE THE PATIENT IS ALERT AND ORIENTED X4. IN ROOM AIR AND SATURATION IS AT 96%. DENIES SOB. RESPIRATION REGULAR AND UNLABORED. DENIES PAIN. THE PATIENT IS IN NO APPARENT DISTRESS. LAC G 18 PATENT AND D5 NS INFUSING AT 50ML/HR AND NO S/S INFILTRATION NOTED. BED LOW AND LOCKED. SIDE RAILS UP X3. CALL LIGHT WITHIN REACH. WILL ENDORSE TO PRODUCTION ASSOCIATE.
--- NOTE | 2020-10-29 19:00 | NUR ---
rn ms opening notes received patient in bed awake alert and oriented x, 4 respirations even and unlabored with equal rise and fall of chest, at this time denies any pain . iv site to left ac#18 g intact and patent, no redness, no infiltration present, ivf running as ordered, oriented to staff and call light and kept within reach, safety precautions rendered, low bed and locked, bed alarm in place. all needs attended at this time, will continue to monitor and attend to needs.
[2020-10-29 20:00] VITALS: BP 141/65
--- NOTE | 2020-10-29 23:35 | NUR ---
rn ms notes patient complained of pain to abdomen area, states 09/09. vs wnl. morphine prn offered, patient agreed. prn morphine as ordered given , will continue to monitor for effectiveness.
[2020-10-30] MEDS: BLOOD SUGAR DIAGNOSTIC 1 EACH STRIP IN SCH ×4 (06:09→23:27)
[2020-10-30] MEDS: INSULIN REGULAR, HUMAN 100 UNIT/ML 3 ML VIAL SQ PRN ×2 (06:09→23:26)
--- NOTE | 2020-10-30 06:09 | NUR ---
rn ms notes accucheck 140. patient refused insulin states" she hasn't ate much and is afraid of blood sugar dropping". insulin held as per patient request.
--- NOTE | 2020-10-30 06:49 | NUR ---
rn ms closing notes patient in bed awake alert and oriented x 4 respirations even and unlabored with equal rise and fall of chest, at this time denies any pain . iv site to left ac#18 g intact and patent, no redness, no infiltration present, ivf running as ordered, call light kept within reach, safety precautions rendered, low bed and locked, bed alarm in place. all needs attended at this time, skin intact, caden care provided, heels offload and skin is intact, no redness, will continue to monitor and attend to need and endorse to next shift.
[2020-10-30 07:50] LABS: BASOPHILS % (AUTO) 0.5 % (0.0-2.0); EOSINOPHILS % (AUTO) 1.9 % (0.0-6.0); HEMATOCRIT 38 % (33-45); HEMOGLOBIN 12.3 g/dL (11.5-14.8); LYMPHOCYTES # (AUTO) 1.2 /CMM (0.8-4.8); MEAN CORPUSCULAR HGB CONC 33 g/dl (31.0-36.0); MEAN CORPUSCULAR VOLUME 93 fL (82-100); MONOCYTES # (AUTO) 0.4 /CMM (0.1-1.30); MONOCYTES % (AUTO) 7.4 % (2.0-12.0); NEUTROPHILS # (AUTO) 3.8 /CMM (1.8-8.9); NEUTROPHILS % (AUTO) 69.2 % (43.0-81.0); PLATELET COUNT (AUTO) 213 /CMM (150-450); RED BLOOD CELL COUNT(AUTO) 4.09 MIL/uL (4.0-5.2); WHITE BLOOD COUNT (AUTO) 5.6 K/uL (4.3-11.0)
--- NOTE | 2020-10-30 08:00 | NUR ---
RN Opening note Received patient in bed AO x 4 , able to responds all stimuli. Patient does no appears pain or discomfort, skin is warm to touch, keep clean/dry, intact IV site running D5NS at 75 ml/hr. Respiratory even and unlabored on room air, no sob or distress observed. Kept locked bed with elevated HOB for ensure airway and lowest position for safety. Call light within reach and bed alarm on at all times. Call light within reach, will continue to monitor.
[2020-10-30 08:06] LABS: AFP, TUMOR MARKER 1.5 ng/mL (0.0-8.3)
[2020-10-30 08:25] LABS: ALANINE AMINOTRANSFERASE 27 U/L (12-78); ALBUMIN 2.4 g/dL (3.4-5.0); ALKALINE PHOSPHATASE 96 U/L (46-116); ASPARTATE AMINOTRANSFERASE 35 U/L (15-37); BILIRUBIN,TOTAL 0.4 mg/dL (0.2-1.0); CARBON DIOXIDE 24 mmol/L (21-32); CHLORIDE 99 mmol/L (98-107); CREATININE 0.5 mg/dL (0.6-1.3); GLUCOSE 143 mg/dL (74-106); MAGNESIUM 2.3 mg/dL (1.8-2.4); PHOSPHORUS 2.7 mg/dL (2.5-4.9); POTASSIUM 3.8 mmol/L (3.5-5.1); SODIUM SERUM 132 mmol/L (136-145); TOTAL PROTEIN, SERUM 5.7 g/dL (6.4-8.2); UREA NITROGEN, BLOOD 7 mg/dL (7-18)
[2020-10-30] MEDS: METOPROLOL SUCCINATE 25 MG TAB.SR.24H PO SCH (09:00)
[2020-10-30] MEDS: ATORVASTATIN 40 MG TABLET PO SCH (09:00)
[2020-10-30] MEDS: LINAGLIPTIN 5 MG TABLET PO SCH (09:00)
[2020-10-30] MEDS: ISOSORBIDE MONONITRATE (30MG) 30 MG TAB.SR.24H PO SCH (09:00)
[2020-10-30] MEDS: CLOPIDOGREL BISULFATE 75 MG TABLET PO SCH (09:00)
[2020-10-30] MEDS: ASPIRIN EC 81 MG TABLET.DR PO SCH (09:00)
[2020-10-30] MEDS: PANTOPRAZOLE 40 MG TABLET.DR PO SCH ×2 (09:00→17:12)
[2020-10-30] MEDS: MEGESTROL ACETATE 40 MG TABLET PO SCH ×2 (09:00→17:12)
[2020-10-30] MEDS: LISINOPRIL (20MG) 20 MG TABLET PO SCH (09:00)
--- NOTE | 2020-10-30 09:30 | NUR ---
Pharmacy called x 2 this morning regarding Fentanyl patch, will inform DR. Carrera/pain doctor that MD have to fill it form and submit pharmacy and patient must on other pain meds.
[2020-10-30] MEDS: ENOXAPARIN SODIUM 40 MG/0.4 ML DISP.SYRIN SQ SCH (09:41)
[2020-10-30] MEDS: MORPHINE SULFATE INJ 2 MG/ML DISP.SYRIN IV PRN ×2 (14:08→21:36)
[2020-10-30] MEDS: IV D5/ 0.9% NACL 1,000 ML IV PRN (14:15)
[2020-10-30] MEDS ORDERED: HYDROCODONE/APAP 10/325MG TABLET PO PRN (15:00)
[2020-10-30] MEDS: DOCUSATE SODIUM 100 MG CAPSULE PO SCH (17:12)
--- NOTE | 2020-10-30 17:27 | NUR ---
RN Closing note Patient in bed resting comfortably, dos no c/o pain or any discomfort. Skin is warm to touch keep clean/dry. Patient poor oral intake and started mergence. Respiratory even and unlabored with ventilator, no cough or respiratory. We still waiting family response to get medical records. Kept locked bed and elevated HOB for aspiration precaution, also lowest position for safety. Call light within reach, will endorse caustic cresylate shift superintendent.
--- NOTE | 2020-10-30 17:35 | NUR ---
RN OPENING NOTES Patient received resting in bed a/o x 4. Stable on RA with breathing even and unlabored, no sob noted. No signs of acute distress. No complaints of pain or discomfort at the moment. IV located on LAC #18 running d5ns @ 75 ml/hr. Safety precautions in place with bed in lowest position, call light within reach, breaks on, side rails up. Will continue to monitor throughout the night.
--- NOTE | 2020-10-30 20:21 | NUR ---
SPOKE TO ALIVIA JUNIOR ON THE PHONE AND UPDATED ON PATIENT. REQUESTED FOR PREVIOUS MEDICAL RECORDS FROM [facility] AND [facility]. SAID HE WILL FOLLOW UP TOMORROW AND SEND TO HOSPITAL WHEN AVAILABLE.
[2020-10-31] MEDS: IV D5/ 0.9% NACL 1,000 ML IV PRN ×2 (05:55→23:14)
[2020-10-31] MEDS: BLOOD SUGAR DIAGNOSTIC 1 EACH STRIP IN SCH ×4 (05:59→23:14)
--- NOTE | 2020-10-31 06:39 | NUR ---
RN CLOSING NOTES Patient resting in bed a/o x 4. Stable on RA with breathing even and unlabored, no sob noted. No signs of acute distress. No complaints of pain or discomfort at the moment. IV located on LAC #18 running d5ns @ 75 ml/hr. Safety precautions in place with bed in lowest position, call light within reach, breaks on, side rails up. All needs attended to. Patient kept clean and dry. Will endorse to oncoming shift about megan.
--- NOTE | 2020-10-31 07:30 | NUR ---
received pt. alert and oriented x4,mostly luxembourgish speaking.vs stable.
[2020-10-31 07:33] LABS: BASOPHILS % (AUTO) 0.2 % (0.0-2.0); EOSINOPHILS % (AUTO) 1.6 % (0.0-6.0); HEMATOCRIT 38 % (33-45); HEMOGLOBIN 12.8 g/dL (11.5-14.8); LYMPHOCYTES # (AUTO) 1.3 /CMM (0.8-4.8); LYMPHOCYTES % (AUTO) 20.7 % (20.0-44.0); MEAN CORPUSCULAR HGB CONC 34 g/dl (31.0-36.0); MEAN CORPUSCULAR VOLUME 90 fL (82-100); MONOCYTES # (AUTO) 0.5 /CMM (0.1-1.30); NEUTROPHILS # (AUTO) 4.3 /CMM (1.8-8.9); NEUTROPHILS % (AUTO) 69.5 % (43.0-81.0); PLATELET COUNT (AUTO) 246 /CMM (150-450); RED BLOOD CELL COUNT(AUTO) 4.24 MIL/uL (4.0-5.2); WHITE BLOOD COUNT (AUTO) 6.1 K/uL (4.3-11.0)
[2020-10-31 08:00] VITALS: BP 151/81
[2020-10-31 09:52] LABS: CALCIUM, SERUM 8.3 mg/dL (8.5-10.1); CARBON DIOXIDE 29 mmol/L (21-32); CHLORIDE 99 mmol/L (98-107); GLUCOSE 112 mg/dL (74-106); POTASSIUM 3.4 mmol/L (3.5-5.1); SODIUM SERUM 135 mmol/L (136-145); UREA NITROGEN, BLOOD 6 mg/dL (7-18)
[2020-10-31 09:53] LABS: CREATININE 0.5 mg/dL (0.6-1.3); MAGNESIUM 2.3 mg/dL (1.8-2.4); PHOSPHORUS 2.3 mg/dL (2.5-4.9)
--- NOTE | 2020-10-31 10:00 | NUR ---
iv removed as leaking,restart #22 lt. ac.
[2020-10-31] MEDS: ENOXAPARIN SODIUM 40 MG/0.4 ML DISP.SYRIN SQ SCH (10:13)
[2020-10-31] MEDS: ATORVASTATIN 40 MG TABLET PO SCH (10:15)
[2020-10-31] MEDS: CLOPIDOGREL BISULFATE 75 MG TABLET PO SCH (10:15)
[2020-10-31] MEDS: LINAGLIPTIN 5 MG TABLET PO SCH (10:15)
[2020-10-31] MEDS: MEGESTROL ACETATE 40 MG TABLET PO SCH ×2 (10:16→18:09)
[2020-10-31] MEDS: ASPIRIN EC 81 MG TABLET.DR PO SCH (10:16)
[2020-10-31] MEDS: LISINOPRIL (20MG) 20 MG TABLET PO SCH (10:16)
[2020-10-31] MEDS: DOCUSATE SODIUM 100 MG CAPSULE PO SCH ×2 (10:17→18:08)
[2020-10-31] MEDS: PANTOPRAZOLE 40 MG TABLET.DR PO SCH ×2 (10:17→18:09)
[2020-10-31] MEDS: ISOSORBIDE MONONITRATE (30MG) 30 MG TAB.SR.24H PO SCH (10:17)
[2020-10-31] MEDS: METOPROLOL SUCCINATE 25 MG TAB.SR.24H PO SCH (10:21)
[2020-10-31] MEDS ORDERED: K PHOS NEUTRAL 250 MG TABLET PO ONE (12:30)
[2020-10-31] MEDS ORDERED: POTASSIUM CHLORIDE 20 MEQ TAB.PRT.SR PO ONE (12:30)
[2020-10-31] MEDS: INSULIN REGULAR, HUMAN 100 UNIT/ML 3 ML VIAL SQ PRN ×2 (13:49→18:07)
--- NOTE | 2020-10-31 15:30 | NUR ---
pt. calling out states she cannot breathe.rn in to rm. vs [id number],hr 94 rr 16,pox 98%.bgl 143.resp. shallow.states chest pain.Zia mccloud on floor and in to see pt. states probably re: to cancer.02 on and pt. calmed down.
[2020-10-31 16:00] VITALS: BP 117/59
--- NOTE | 2020-10-31 16:00 | NUR ---
pediatric np for dr. devlin in and given family no. trying to get pathology report from [facility].request for records sent.
--- NOTE | 2020-10-31 16:30 | NUR ---
potassium replacement and neutra phos given for abn. labs.
[2020-10-31] MEDS: MORPHINE SULFATE INJ 2 MG/ML DISP.SYRIN IV PRN (18:17)
--- NOTE | 2020-10-31 18:17 | NUR ---
med. for abd. pain with morphine.
--- NOTE | 2020-10-31 19:30 | NUR ---
MS RN OPENING NOTE RECEIVED PATIENT IN BED. A/OX3, PASHTO SPEAKING ABLE TO MAKE BASIC NEEDS KNOWN. TOLERATING ROOM AIR. RESPIRATIONS ARE EVEN AND UNLABORED. NO S/S SOB NOTED. NO C/O PAIN MADE AT THIS TIME. IN NO APPARENT DISTRESS. IV ACCESS IN LAC#22 RUNNING D5NS@75ML/HR. BED IS LOW AND LOCKED, HOB ELEVATED IN SEMI FOWLERS, SIDE RIALS UP X2, PATEL LIGHT WITHIN REACH. WILL CONTINUE MONITOR.
[2020-10-31 20:00] VITALS: BP 112/60
[2020-10-31 21:01] LABS: AMYLASE 31 U/L (25-115); LIPASE 21 U/L (73-393)
--- NOTE | 2020-10-31 21:51 | NUR ---
MS RN NOTE INFORMED HEEL SCORER MD DR. ARANDA THAT PATIENT STATES SHE HAS NOT HAD A BM IN 5 DAYS, REVIEWED I/O NO BM CHARTED. MD TELEPHONE ORDER FLEET ENEMA DAILY PRN. ORDER READ BACK NOTED AND CARRIED OUT.
[2020-10-31] MEDS ORDERED: NA PHOS,M-B/NA PHOS,DI-BA 1 EA ENEMA RC PRN (22:00)
[2020-11-01] MEDS: BLOOD SUGAR DIAGNOSTIC 1 EACH STRIP IN SCH ×3 (06:17→18:33)
[2020-11-01] MEDS: INSULIN REGULAR, HUMAN 100 UNIT/ML 3 ML VIAL SQ PRN ×2 (06:28→14:14)
--- NOTE | 2020-11-01 07:30 | NUR ---
RECEIVED PT. IN AM ALERT AND ORIENTED X4. MAINLY SOPANISH SPEAKING,SIDE RAILS UP. QUALITY IMPROVEMENT ANALYST DAVIN STILL.
--- NOTE | 2020-11-01 07:38 | NUR ---
MS RN CLOSING NOTE PATIENT RESTING IN BED. A/OX3. REMAIN TOLERATING ROOM AIR. NO RESP DISTRESS. NO C/O PAIN T/O SHIFT. NO DISTRESS. IV ACCESS MAINTAINED IN LAC#22 RUNNING D5NS@75ML/HR. BED REMAINS LOW AND LOCKED, HOB ELEVATED IN SEMI FOWLERS, SIDE RIALS UP X2, PATEL LIGHT WITHIN REACH. WILL ENDORSE TO NEXT SHIFT.
[2020-11-01 07:56] LABS: BASOPHILS % (AUTO) 0.3 % (0.0-2.0); EOSINOPHILS % (AUTO) 2.4 % (0.0-6.0); HEMATOCRIT 33 % (33-45); HEMOGLOBIN 11.3 g/dL (11.5-14.8); LYMPHOCYTES % (AUTO) 20.9 % (20.0-44.0); MEAN CORPUSCULAR HGB CONC 34 g/dl (31.0-36.0); MEAN CORPUSCULAR VOLUME 90 fL (82-100); MONOCYTES # (AUTO) 0.5 /CMM (0.1-1.30); MONOCYTES % (AUTO) 9.5 % (2.0-12.0); NEUTROPHILS # (AUTO) 3.2 /CMM (1.8-8.9); NEUTROPHILS % (AUTO) 66.9 % (43.0-81.0); PLATELET COUNT (AUTO) 214 /CMM (150-450); WHITE BLOOD COUNT (AUTO) 4.8 K/uL (4.3-11.0)
[2020-11-01 08:00] VITALS: BP 153/71
[2020-11-01 08:49] LABS: CARBON DIOXIDE 26 mmol/L (21-32); CHLORIDE 102 mmol/L (98-107); CREATININE 0.5 mg/dL (0.6-1.3); MAGNESIUM 2.8 mg/dL (1.8-2.4); PHOSPHORUS 2.6 mg/dL (2.5-4.9); POTASSIUM 3.5 mmol/L (3.5-5.1); SODIUM SERUM 135 mmol/L (136-145); UREA NITROGEN, BLOOD 10 mg/dL (7-18)
[2020-11-01 09:32] LABS: CALCIUM, SERUM 7.6 mg/dL (8.5-10.1); GLUCOSE 156 mg/dL (74-106)
[2020-11-01] MEDS: DOCUSATE SODIUM 100 MG CAPSULE PO SCH ×2 (10:08→18:32)
[2020-11-01] MEDS: ISOSORBIDE MONONITRATE (30MG) 30 MG TAB.SR.24H PO SCH (10:08)
[2020-11-01] MEDS: LINAGLIPTIN 5 MG TABLET PO SCH (10:08)
[2020-11-01] MEDS: ASPIRIN EC 81 MG TABLET.DR PO SCH (10:09)
[2020-11-01] MEDS: MEGESTROL ACETATE 40 MG TABLET PO SCH ×2 (10:09→18:32)
[2020-11-01] MEDS: CLOPIDOGREL BISULFATE 75 MG TABLET PO SCH (10:09)
[2020-11-01] MEDS: LISINOPRIL (20MG) 20 MG TABLET PO SCH (10:10)
[2020-11-01] MEDS: ATORVASTATIN 40 MG TABLET PO SCH (10:10)
[2020-11-01] MEDS: ENOXAPARIN SODIUM 40 MG/0.4 ML DISP.SYRIN SQ SCH (10:13)
[2020-11-01] MEDS: PANTOPRAZOLE 40 MG TABLET.DR PO SCH ×2 (10:14→18:33)
[2020-11-01] MEDS: METOPROLOL SUCCINATE 25 MG TAB.SR.24H PO SCH (10:21)
--- NOTE | 2020-11-01 11:30 | NUR ---
SPOKE WITH CASE MGMT. EARLY ABOUT POSSIBLE DC TODAY,BUT UNABLE TO REACH DTR.
[2020-11-01 16:00] VITALS: BP 109/55
--- NOTE | 2020-11-01 16:22 | NUR ---
SW received a call from Case Management team regarding patient's discharge plan. Case Management team informed this SW that they have been unsuccessful at contacting patient's family. Case Management team currently referring the patient to a fpc facility. This SW filed an APS report for abandonment. APS Intake # [id number] SW remains available for all needs regarding this patient.
[2020-11-01] MEDS: ENSURE ENLIVE 237 ML LIQUID (VANILLA) PO SCH (17:00)
[2020-11-01] MEDS: IV D5/ 0.9% NACL 1,000 ML IV PRN (18:46)
--- NOTE | 2020-11-01 19:30 | NUR ---
MS RN OPENING NOTE: PATIENT RESTING IN BED. ALERT AND ORIENTED X3. NO ACUTE RESPIRATORY DISTRESS NOTED. IV ACCESS MAINTAINED IN LAC#22 RUNNING D5NS@75ML/HR. NO C/O PAIN OR DISCOMFORT AT THIS TIME. BED REMAINS LOW AND LOCKED, HOB ELEVATED IN SEMI FOWLERS, SIDE RAILS UP X2, PATEL LIGHT WITHIN REACH.
[2020-11-01 20:00] VITALS: BP 162/70
[2020-11-01] MEDS: MORPHINE SULFATE INJ 2 MG/ML DISP.SYRIN IV PRN (20:40)
--- NOTE | 2020-11-01 20:41 | NUR ---
RN-MS NOTE: PATIENT C/O MID ABDOMINAL PAIN ON A PAIN SCALE OF 9/10. ADMINISTERED MORPHINE SULPHATE 2MG IV PUSH. WILL CONTINUE TO REASSESS.
[2020-11-02] MEDS: BLOOD SUGAR DIAGNOSTIC 1 EACH STRIP IN SCH ×3 (00:15→12:06)
[2020-11-02] MEDS: INSULIN REGULAR, HUMAN 100 UNIT/ML 3 ML VIAL SQ PRN ×2 (00:20→12:15)
[2020-11-02] MEDS: HYDROCODONE/APAP 5/325MG TABLET PO PRN ×2 (01:23→14:29)
--- NOTE | 2020-11-02 01:24 | NUR ---
RN-MS NOTE: PATIENT C/O MID ABDOMINAL PAIN ON A PAIN SCALE OF 7/10. ADMINISTERED NORCO 5/325MG 1 TAB PO ORDERED. WILL CONTINUE TO REASSESS.
--- NOTE | 2020-11-02 06:43 | NUR ---
MS RN CLOSING NOTE PATIENT IN BED ASLEEP. AROUSES EASILY. ALERT AND ORIENTED X3. NO ACUTE RESPIRATORY DISTRESS NOTED. DENIES PAIN OR DISCOMFORT AT THIS TIME. IV ACCESS ON LAC#22 PATENT AND INTACT. BED REMAINS LOW AND LOCKED, HOB ELEVATED IN SEMI FOWLERS, SIDE RAILS UP X2, PATEL LIGHT WITHIN REACH. WILL ENDORSE TO THE DAY SHIFT NURSE FOR CONTINUITY OF CARE.
--- NOTE | 2020-11-02 07:30 | NUR ---
MS/RN OPENING NOTE Patient resting in bed, A&O x 4. No complaints of pain/discomfort at this time. Breathing even and non-labored on RA, no SOB noted. No cardiac distress noted. IV access noted on LAC #18g, patent and intact, and flushing well. Sensation from all peripheral extremities intact. Bed locked to its lowest position, side rails x 2 up, call light in hand. Will continue with current medical management.
[2020-11-02] MEDS: ENSURE ENLIVE 237 ML LIQUID (VANILLA) PO SCH ×2 (09:19→12:06)
[2020-11-02] MEDS: CLOPIDOGREL BISULFATE 75 MG TABLET PO SCH (09:20)
[2020-11-02] MEDS: DOCUSATE SODIUM 100 MG CAPSULE PO SCH (09:20)
[2020-11-02] MEDS: ATORVASTATIN 40 MG TABLET PO SCH (09:20)
[2020-11-02] MEDS: PANTOPRAZOLE 40 MG TABLET.DR PO SCH (09:20)
[2020-11-02] MEDS: MEGESTROL ACETATE 40 MG TABLET PO SCH (09:21)
[2020-11-02] MEDS: ASPIRIN EC 81 MG TABLET.DR PO SCH (09:21)
[2020-11-02] MEDS: LINAGLIPTIN 5 MG TABLET PO SCH (09:21)
[2020-11-02 09:22] VITALS: BP 157/84
[2020-11-02] MEDS: LISINOPRIL (20MG) 20 MG TABLET PO SCH (09:22)
[2020-11-02] MEDS: METOPROLOL SUCCINATE 25 MG TAB.SR.24H PO SCH (09:22)
[2020-11-02] MEDS: ISOSORBIDE MONONITRATE (30MG) 30 MG TAB.SR.24H PO SCH (09:22)
[2020-11-02] MEDS: ENOXAPARIN SODIUM 40 MG/0.4 ML DISP.SYRIN SQ SCH (09:23)
[2020-11-02] MEDS: IV D5/ 0.9% NACL 1,000 ML IV PRN (09:39)
[2020-11-02 11:18] LABS: BASOPHILS % (AUTO) 0.1 % (0.0-2.0); EOSINOPHILS % (AUTO) 0.7 % (0.0-6.0); HEMATOCRIT 38 % (33-45); HEMOGLOBIN 12.6 g/dL (11.5-14.8); LYMPHOCYTES # (AUTO) 0.7 /CMM (0.8-4.8); LYMPHOCYTES % (AUTO) 10.6 % (20.0-44.0); MEAN CORPUSCULAR HGB CONC 33 g/dl (31.0-36.0); MEAN CORPUSCULAR VOLUME 90 fL (82-100); MONOCYTES # (AUTO) 0.5 /CMM (0.1-1.30); MONOCYTES % (AUTO) 6.5 % (2.0-12.0); NEUTROPHILS # (AUTO) 5.8 /CMM (1.8-8.9); NEUTROPHILS % (AUTO) 82.1 % (43.0-81.0); PLATELET COUNT (AUTO) 243 /CMM (150-450); RED BLOOD CELL COUNT(AUTO) 4.22 MIL/uL (4.0-5.2)
[2020-11-02 11:46] LABS: CREATININE 0.6 mg/dL (0.6-1.3); POTASSIUM 3.6 mmol/L (3.5-5.1)
[2020-11-02] MEDS ORDERED: HYDR-3972 PO (12:07)
[2020-11-02] MEDS ORDERED: MEGE40TA5 PO (12:07)
[2020-11-02] MEDS ORDERED: Blood Sugar Diagnostic IN (12:07)
[2020-11-02] MEDS ORDERED: Hydrocodone/Apap 10/325MG PO (12:07)
[2020-11-02] MEDS ORDERED: INSU100V28 SQ (12:07)
--- NOTE | 2020-11-02 16:10 | NUR ---
MS/HADOOP ENGINEER NOTE Patient picked up by curb attendant at 1610. All needs met and attended to. Denies any pain/discomfort at this time. Breathing even and non-labored on RA. No respiratory or cardiac distress noted. LAC #18 IV access removed with catheter intact.. No s/s of infiltration, infection, bleeding noted on site. Sensation from all peripheral extremities intact. No skin impairments noted. Educated patient and SERGIO Rivero (from [facility]) regarding discharge instructions, answered all their questions to their satisfaction. Patient and Josefa verbalized understanding. Patient left facility @ 1610 with all belongings and hospital documents in hand.
== END 2020-11-02 16:42 | DRG 436 ==
LOC: ER 19:03 → MED 23:35
PROVIDERS: ADMIT Student in an Organized Health Care Education/Training Program; ATTEND Nurse Practitioner Acute Care
DX: C78.7 Secondary malignant neoplasm of liver and intrahepatic bile duct (principal); E44.1 Mild protein-calorie malnutrition; E87.1 Hypo-osmolality and hyponatremia; N17.9 Acute kidney failure, unspecified; I25.10 Atherosclerotic heart disease of native coronary artery without angina pectoris; K21.9 Gastro-esophageal reflux disease without esophagitis; Z86.718 Personal history of other venous thrombosis and embolism; Z79.4 Long term (current) use of insulin; Z79.02 Long term (current) use of antithrombotics/antiplatelets; E83.39 Other disorders of phosphorus metabolism; E87.6 Hypokalemia; I10 Essential (primary) hypertension; E88.09 Other disorders of plasma-protein metabolism, not elsewhere classified; Z68.20 Body mass index [BMI] 20.0-20.9, adult; E86.9 Volume depletion, unspecified; G89.3 Neoplasm related pain (acute) (chronic); E11.9 Type 2 diabetes mellitus without complications; K59.00 Constipation, unspecified; C80.1 Malignant (primary) neoplasm, unspecified; K86.89 Other specified diseases of pancreas
CPT/HCPCS: 36415; 71045-TC; 80048-TC; 80053-TC; 80061-TC; 80076-TC; 81001; 82105; 82150-TC; 82378; 82962-TC; 83690-TC; 83735-TC; 84100-TC; 84443-TC; 84484-TC; 84550-TC; 85025-TC; 86301; 87081-TC; C9113; C9803; G0378; J1650; J1815; J2270; J2405; J3490; J7040; J7042; J7050; Q9967